=== PATIENT | female | born 1970 | race Caucasian/White ===

== ENCOUNTER → 2018-05-26 | Outpatient (CLI) | payer BC | LOC: MC.RAD 13:39 | DX: Z12.31 Encounter for screening mammogram for malignant neoplasm of breast (principal); N63.14 Unspecified lump in the right breast, lower inner quadrant ==

== ENCOUNTER → 2018-06-07 | Outpatient (CLI) | payer BC | LOC: MC.RAD 13:57 | DX: N60.01 Solitary cyst of right breast (principal) ==

== ENCOUNTER → 2021-08-03 | Outpatient (CLI) | payer BC | LOC: COL.RAD 11:12 | DX: E06.3 Autoimmune thyroiditis (principal); E03.8 Other specified hypothyroidism; N94.0 Mittelschmerz; E28.0 Estrogen excess ==

== ENCOUNTER → 2022-08-31 | Outpatient (CLI) | payer BC | LOC: MC.RAD 13:00 | DX: R92.8 Other abnormal and inconclusive findings on diagnostic imaging of breast (principal) ==

== ENCOUNTER → 2023-08-30 | Outpatient (CLI) | payer BC | LOC: MC.RAD 10:00 | DX: Z12.31 Encounter for screening mammogram for malignant neoplasm of breast (principal) ==